=== PATIENT | female | born 2000 | race Caucasian/White ===

== ENCOUNTER → 2020-03-18 | Outpatient (CLI) | payer OTHER ==
[~2020-03-18] MED LIST: BCP PO; BUTALB-APAP-CA1 EACH PO; ZYRTEC10 M4 PO
== END ==
LOC: LAB 13:48
PROVIDERS: ATTEND Neuromusculoskeletal Medicine & OMM
DX: Z20.828 Contact with and (suspected) exposure to other viral communicable diseases (principal)

== ENCOUNTER → 2020-07-08 | Outpatient (CLI) | payer OTHER | LOC: LAB 11:20 | PROVIDERS: ATTEND Neuromusculoskeletal Medicine & OMM | DX: R53.83 Other fatigue (principal); R11.10 Vomiting, unspecified; R19.7 Diarrhea, unspecified; Z20.822 Contact with and (suspected) exposure to COVID-19 ==

== ENCOUNTER 2021-04-27 16:22 | Emergency (ER) | payer OTHER ==
[~2021-04-27] VITALS: Ht 162.6 cm; Wt 56.7 kg
[2021-04-27 16:27] VITALS: BP 101/41
[2021-04-27] MEDS ORDERED: CEPHALEXIN 250250 M1 PO ×2 (16:39→16:41)
[2021-04-27] MEDS ORDERED: MEDROLDOSEPACK PO ×2 (16:39→16:41)
== END 2021-04-27 17:08 | disposition home or self-care (01) ==
LOC: ER 16:22
DX: S40.861A Insect bite (nonvenomous) of right upper arm, initial encounter (principal); Z79.899 Other long term (current) drug therapy; Z88.0 Allergy status to penicillin; W57.XXXA Bitten or stung by nonvenomous insect and other nonvenomous arthropods, initial encounter; Y93.89 Activity, other specified; Y92.89 Other specified places as the place of occurrence of the external cause; Y99.8 Other external cause status